=== PATIENT | male | born 1930 | race Caucasian/White ===

== ENCOUNTER 2018-11-17 07:14 | Emergency (ER) | payer MEDICARE ==
--- NOTE | 2018-11-17 08:04 | ED ---
General Adult HPI - General Chief complaint: Abdominal Pain Stated complaint: Male Time Seen by Provider: 11/17/18 07:25 Source: patient, RN notes reviewed Mode of arrival: wheelchair Limitations: no limitations - History of Present Illness Initial comments: 88-year-old male presents for evaluation of constipation, rectal pain, and some rectal bleeding. Patient has long-standing history of constipation. History somewhat difficult as patient does have dementia. His son is able to provide additional history. His been dealing with constipation for many years. He is on multiple laxatives as well as Metamucil. He does not drink adequate amounts of water. He states he's had some loose stool this morning and has a sensation that he has to have a large bowel movement. He did have a small amount of bright red rectal bleeding. He is not on any blood thinners. No significant abdominal pain. - Related Data Home Medications Medication Instructions Recorded Confirmed Memantine [Namenda] 10 mg PO BID 11/17/18 11/17/18 Tamsulosin [Flomax] 0.4 mg PO DAILY 11/17/18 11/17/18 Allergies Allergy/AdvReac Type Severity Reaction Status Date / Time No Known Allergies Allergy Verified 11/17/18 08:33 Review of Systems ROS Statement: Those systems with pertinent positive or pertinent negative responses have been documented in the HPI. ROS Other: All systems not noted in ROS Statement are negative. Past Medical History Past Medical History: Cancer, Dementia Additional Past Medical History / Comment(s): cahuilla, prostate History of Any Multi-Drug Resistant Organisms: None Reported Additional Past Surgical History / Comment(s): back Smoking Status: Former smoker Past Alcohol Use History: None Reported Past Drug Use History: None Reported General Exam Limitations: no limitations General appearance: alert, in no apparent distress Head exam: Present: atraumatic, normocephalic Eye exam: Present: normal appearance, PERRL ENT exam: Present: normal exam Neck exam: Present: normal inspection Respiratory exam: Present: normal lung sounds bilaterally. Absent: respiratory distress Cardiovascular Exam: Present: regular rate, normal rhythm GI/Abdominal exam: Present: soft, distended. Absent: tenderness, guarding, rebound Rectal exam: Present: decreased rectal tone, fecal impaction (Impacted rectal stool.), hemorrhoids (Two 1.5 cm external hemorrhoids, nonthrombosed, no active bleeding.), other (No bleeding, no melena, brown stool). Absent: black stool, bloody stool exam: Present: normal inspection Extremities exam: Present: normal inspection, normal capillary refill. Absent: pedal edema, calf tenderness Neurological exam: Present: alert. Absent: oriented X3 Skin exam: Present: warm, dry, intact. Absent: cyanosis, diaphoretic Course Vital Signs 11/17/18 11/17/18 07:32 10:13 Temperature 97.8 F 97.3 F L Pulse Rate 76 63 Respiratory 18 16 Rate Blood Pressure 150/74 152/62 O2 Sat by Pulse 98 99 Oximetry Medical Decision Making - Medical Decision Making 88-year-old male with history constipation presents with an episode of rectal pain, constipation, and minimal rectal bleeding. He has 2 large hemorrhoids on exam, he is impacted stool in the rectum. He is disimpacted in the emergency department and has one very large bowel movement following disimpaction. He has a soft abdomen which is nontender, is stable vitals. X-ray does show stool in the descending colon. He is given magnesium citrate to take at home. He will be present with worsening or changing symptoms. Disposition Clinical Impression: Constipation Disposition: HOME SELF-CARE Condition: Fair Instructions (If sedation given, give patient instructions): Constipation (ED) Is patient prescribed a controlled substance at d/c from ED?: No Referrals: Loy French DO [Primary Care Provider] - 1-2 days Time of Disposition: 10:34
--- NOTE | 2018-11-17 08:09 | XR ---
EXAMINATION TYPE: XR KUB , 2 VIEWS DATE OF EXAM ORDERED: 11/17/2018 HISTORY: Pain. COMPARISON: None. FINDINGS: The lung bases are clear. Within the abdomen, the abdominal gas pattern is within normal limits. There is no evidence of obstru ction or free air. No unusual calcifications are seen. There is evidence of mild spondylosis deforman s within the lumbar spine. IMPRESSION: NO ACUTE INTRA-ABDOMINAL ABNORMALITY.
[2018-11-17] MEDS ORDERED: LORazepam 1 MG TAB PO STA (09:33)
[2018-11-17] MEDS ORDERED: MAGNESIUM CITRATE 296 ML BOTTLE PO ONE (10:33)
[2018-11-17 10:57] VITALS: BP 142/62; PULSE 86; RESP 18; TEMP 97.9
== END 2018-11-17 10:57 | disposition home or self-care (01) ==
LOC: EC 07:14
DX: K56.41 Fecal impaction (principal); K64.4 Residual hemorrhoidal skin tags; F03.90 Unspecified dementia, unspecified severity, without behavioral disturbance, psychotic disturbance, mood disturbance, and anxiety; Z79.899 Other long term (current) drug therapy; Z87.891 Personal history of nicotine dependence
CPT/HCPCS: 74018; 99283